=== PATIENT | female | born 1960 | race Caucasian/White ===

== ENCOUNTER 2016-09-25 04:01 | Emergency (ER) | payer BC ==
[~2016-09-25] VITALS: Ht 167.6 cm; Wt 61.4 kg
[~2016-09-25 04:01] MED LIST: NO HOME MEDICATIONS
[2016-09-25 04:04] VITALS: TEMP 97.9
[2016-09-25 04:46] LABS: BASO % 0.3 % (0.0-2.0); EOS # 0.1 (0.0-0.7); EOS % 2.1 % (0-4.0); GRAN # 4.1 (1.4-6.5); GRAN % 61.3 % (42.2-75.2); HEMATOCRIT 36.9 % (37.0-47.0); HEMOGLOBIN 12.5 g/dl (12.5-16.0); LYMPH % 29.7 % (20.0-51.0); MEAN CELL VOLUME 90 fl (80.0-100.0); MEAN CORPUSCULAR HEMOGLOBIN 31 pg (27.0-31.0); MEAN CORPUSCULAR HGB CONC 34 g/dl (33.0-37.0); MEAN PLATELET VOLUME 10.8 fl (7.4-10.4); MONO # 0.4 (0.1-0.6); MONO % 6.3 % (1.7-9.3); PLATELET COUNT 183 K/mm3 (130-400); REDCELL DISTRIBUTION WIDTH-CV 12.3 % (11.5-14.5); WHITE BLOOD COUNT 6.7 K/mm3 (4.8-10.8)
[2016-09-25 04:55] LABS: ADJUSTED CALCIUM 9.2 mg/dL (8.4-10.2); BILIRUBIN,TOTAL 0.8 mg/dL (0.0-1.0); CALCIUM 9.2 mg/dL (8.4-10.2); CREATININE, serum 0.84 mg/dL (0.52-1.25); POTASSIUM 3.8 mmol/L (3.4-5.0); TOTAL PROTEIN 6.8 gm/dL (6.4-8.2)
[2016-09-25 05:32] LABS: PH 8 (5-8); SQUAMOUS EPITHELIAL None Seen /hpf; URINE APPEARANCE Hazy; URINE BACTERIA None Seen /hpf; URINE BILIRUBIN Negative (NEGATIVE); URINE BLOOD 3+ (NEGATIVE); URINE COLOR Yellow; URINE GLUCOSE Negative (NEGATIVE); URINE KETONE Negative (NEGATIVE); URINE RBC >50 /hpf; URINE UROBILINOGEN Negative (NEGATIVE)
[2016-09-25] MEDS ORDERED: ULTRAM 50MG TAB50 MG PO (06:06)
[2016-09-25] MEDS ORDERED: ZOFRAN8 MG PO (06:06)
[2016-09-25] MEDS ORDERED: PERCOCET 325 MG1 TA2 PO (06:06)
[2016-09-25] MEDS ORDERED: FLOMAX 0.40.4 MG/CAP PO (06:06)
[2016-09-25 06:20] VITALS: BP 124/73; PULSE 65
== END 2016-09-25 06:21 | disposition home or self-care (01) ==
LOC: COL.ER 04:01
PROVIDERS: Emergency Medicine
DX: N13.2 Hydronephrosis with renal and ureteral calculous obstruction (principal)
CPT/HCPCS: J1885; J7030

== ENCOUNTER → 2018-05-13 | Outpatient (CLI) | payer BC ==
[~2018-05-13] MED LIST changes: +FLOMAX 0.40.4 MG/CAP PO; +PERCOCET 325 MG1 TA2 PO; +ULTRAM 50MG TAB50 MG PO; +ZOFRAN8 MG PO
== END ==
LOC: MC.RAD 08:27
DX: Z12.31 Encounter for screening mammogram for malignant neoplasm of breast (principal)

== ENCOUNTER → 2019-07-24 | Outpatient (CLI) | payer BC | LOC: MC.RAD 14:42 | DX: Z12.31 Encounter for screening mammogram for malignant neoplasm of breast (principal) ==

== ENCOUNTER → 2020-08-16 | Outpatient (CLI) | payer BC | LOC: MC.RAD 07-25 13:45 | DX: Z12.31 Encounter for screening mammogram for malignant neoplasm of breast (principal) ==

== ENCOUNTER → 2024-04-04 | Outpatient (CLI) | payer OTHER | LOC: MC.RAD 07:51 | DX: Z12.31 Encounter for screening mammogram for malignant neoplasm of breast (principal) ==